=== PATIENT | male | born 1985 | race American Indian/Alaskan Native ===

== ENCOUNTER 2017-07-25 11:05 | Emergency (ER) | payer BC ==
[2017-07-25 11:21] VITALS: BP 139/86; PULSE 64; RESP 16; TEMP 98.1; O2SAT 98; BMI 25.0
== END 2017-07-25 12:51 | disposition home or self-care (01) ==
LOC: H.ER 11:05
DX: S69.92XA Unspecified injury of left wrist, hand and finger(s), initial encounter (principal); X50.9XXA Other and unspecified overexertion or strenuous movements or postures, initial encounter; Y92.89 Other specified places as the place of occurrence of the external cause

== ENCOUNTER 2017-08-05 16:28 | Emergency (ER) | payer BC ==
[2017-08-05 16:28] VITALS: BMI 25.0
[2017-08-05 16:33] VITALS: BP 152/90; PULSE 77; RESP 16; TEMP 98; O2SAT 98
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
--- NOTE | 2017-08-05 17:31 | RAD ---
PROCEDURE: Left Hand Radiographs. HISTORY: HAND INJURY COMPARISON: None. FINDINGS: BONES: Three views of the left hand were performed. No fracture is seen. No lytic process is noted. No erosions are seen. No periosteal reaction is noted. No dislocation of the phalanges is seen. Distal radius and ulna are intact. JOINTS: Normal. No osteoarthritic changes. SOFT TISSUES: Normal. OTHER FINDINGS: None. IMPRESSION: No appreciable fracture.
== END 2017-08-05 18:37 | disposition home or self-care (01) ==
LOC: H.ER 16:28
DX: S60.222A Contusion of left hand, initial encounter (principal); Y04.0XXA Assault by unarmed brawl or fight, initial encounter; Y92.89 Other specified places as the place of occurrence of the external cause